=== PATIENT | female | born 1995 | race Two or more races ===

== ENCOUNTER 2025-01-24 20:11 | Emergency (ER) | payer MEDICAID, OTHER ==
[~2025-01-24] VITALS: Ht 152.4 cm; Wt 96.4 kg
--- NOTE | 2025-01-24 20:20 | ED.PDOC ---
Eye-HPI HPI Comments PATIENT C/O RIGHT LOWER MOLAR PAIN/SWELLING FOR 2 DAYS. PATIENT IS 10 WEEKS , DENTIST WILL NOT SEE HER WITHOUT CLEARANCE FROM OBGYN. Chief Complaint: Tooth Pain Time Seen by MD: 20:18 Reviewed Notes: Nurses Notes, Medications, Allergies Allergies: Coded Allergies: NO KNOWN ALLERGIES (Unverified , 01/24/25) Home Meds Active Scripts Amoxicillin Trihydrate (Amoxicillin) 500 Mg Cap, 1 CAP PO BID for 7 Days, #14 CAP Prov:JEAN-PIERRE SHAH WEDGER MACHINE 01/24/25 Information Source: Patient Past Medical History PAST MEDICAL HISTORY: Denies Surgical History: Denies all surgeries NETWORK ENGINEER History: No Pertinent NETWORK ENGINEER History Family History Family History: Reviewed,noncontributory to illness Social History Smoker: Non-Smoker Alcohol: Denies ETOH Use Drugs: Denies Drug Use Constitutional: denies: chills, diaphoresis, fatigue, fever, malaise, sweats, weakness, others EENTM: reports: others (dental pain); denies: blurred vision, double vision, ear bleeding, ear discharge, ear drainage, ear pain, ear ringing, eye pain, eye redness, hearing loss, mouth pain, mouth swelling, nasal discharge, nose bleeding, nose congestion, nose pain, photophobia, tearing, throat pain, throat swelling, voice changes Respiratory: denies: cough, hemoptysis, orthopnea, SOB at rest, shortness of breath, SOB with excertion, stridor, wheezing, others Cardiovascular: denies: chest pain, dizzy spells, diaphoresis, Dyspnea on exertion, edema, irregular heart beat, left arm pain, lightheadedness, palpitations, PND, syncope, others Gastrointestinal: denies: abdomen distended, abdominal pain, blood streaked bowels, constipated, diarrhea, dysphagia, difficulty swallowing, hematemesis, melena, nausea, poor appetite, poor fluid intake, rectal bleeding, rectal pain, vomiting, others Genitourinary: denies: abnormal vagina bleeding, burning, dyspareunia, dysuria, flank pain, frequency, hematuria, incontinence, pain, , vagina discharge, urgency, others Neurological: denies: dizziness, fainting, headache, left sided numbness, left sided weakness, numbness, paresthesia, pre-existing deficit, right sided numbness, right sided weakness, seizure, speech problems, tingling, tremors, weakness, others Musculoskeletal: denies: back pain, gout, joint pain, joint swelling, muscle pain, muscle stiffness, neck pain, others Integumetry: denies: bruises, change in color, change in hair/nails, dryness, laceration, lesions, lumps, rash, wounds, others Allergic/Immunocompromised: denies: Difficulty Healing, Frequent Infections, Hives, Itching, others Hematologic/Lymphatic: denies: anemia, blood clots, easy bleeding, easy bruising, swollen glands, others Endocrine: denies: excessive hunger, excessive sweating, excessive thirst, excessive urination, flushing, intolerance to cold, intolerance to heat, unexplained weight gain, unexplained weight loss, others Psychiatric: denies: anxiety, bipolar disorder, depression, hopeless, panic disorder, schizophrenia, sleepless, suicidal, others Physical Exam General Appearance: No Apparent Distress, Normal HEENT: Pharynx Normal, TMs Normal, Other (Tooth number 47 with moderate cavity and home no noted abscess or drainage) Neck: Full Range of Motion, Non-Tender Respiratory: Lungs Clear, No Respiratory Distress, Normal Breath Sounds Cardiovascular: No Edema, No JVD, No Murmur, No Gallop, Normal Peripheral Pulses, Regular Rate/Rhythm Breast Exam: Deferred Gastrointestinal: No Organomegaly, Non Tender, No Pulsatile Mass, Normal Bowel Sounds, Soft Genitalia: Deferred Pelvic: Deferred Rectal: Deferred Extremities: Normal capillary refill, Normal inspection, Normal range of motion, Non-tender, No pedal edema Musculoskeletal : Apperance: Normal Neurologic: Alert, No Motor Deficits, Normal Affect, Normal Mood, No Sensory Deficits Cerebellar Function: Normal Reflexes: NOT DONE Skin: Dry, Normal Color, Warm Lymphatic: No Adenopathy Was a procedure done? Was a procedure done?: No EENT DIFF Eye: N/A Sore Throat: Abhi's Angina X-Ray, Labs, Meds, VS Vital Signs Date Time Temp Pulse Resp B/P (MAP) Pulse Ox O2 Delivery O2 Flow Rate FiO2 01/24/25 20:13 98.1 82 18 109/83 100 98.1 X-Ray, Labs, Meds, VS Comment Patient given Rocephin 1 g IM and Hurricaine spray reports improvement in pain requesting discharge at this time. Trial of amoxicillin advised take medication as prescribed side effects discussed. He is to follow up with her OBGYN for teresa roberson for dental. ER return precautions given patient indicates understanding and agrees with discharge plan of care. Time of 1ST Reevaluation: 20:25 Reevaluation 1ST: Unchanged Time of 2ND Reevaluation: 20:59 Reevaluation 2ND: Improved Patient Education/Counseling: Diagnosis, Treatment, Prognosis, Need For Follow Up Family Education/Counseling: No Family Present SEPSIS Sepsis Screen Vital Signs Date Time Temp Pulse Resp B/P (MAP) Pulse Ox O2 Delivery O2 Flow Rate FiO2 01/24/25 20:13 98.1 82 18 109/83 100 98.1 Departure 1 Departure Time of Disposition: 20:40 Impression: Primary Impression: Infected dental caries Disposition: 01 HOME / SELF CARE / HOMELESS Condition: Stable e-Prescriptions Amoxicillin Trihydrate (Amoxicillin) 500 Mg Cap 1 CAP PO BID for 7 Days, #14 CAP Prov: JEAN-PIERRE SHAH 01/24/25 Discharged With: Self Critical Care Note Critical Care Time?: No Stability Stability form required: JEAN-PIERRE Delacruz Jan 24, 2025 20:19
[2025-01-24] MEDS ORDERED: AMOX500C2 PO (20:41)
[2025-01-24] MEDS ORDERED: BENZOCAINE (DENTAL) 20 % SPRAY 60ML MT ONE (20:45)
[2025-01-24] MEDS ORDERED: cefTRIAXone SOD 1,000 MG VL IM ONE ×2 (20:45)
[2025-01-24] MEDS: cefTRIAXone SOD 1,000 MG VL IM ONE (21:12)
[2025-01-24] MEDS: BENZOCAINE (DENTAL) 20 % SPRAY 60ML MT ONE (21:12)
[2025-01-24 21:20] VITALS: BP 112/81; PULSE 80; RESP 20; TEMP 98; O2SAT 100
== END 2025-01-24 21:23 | disposition home or self-care (01) ==
LOC: ER 20:11
DX: K02.9 Dental caries, unspecified (principal); Z79.899 Other long term (current) drug therapy
CPT/HCPCS: 96372; 99283; J0696

== ENCOUNTER 2025-04-07 07:59 | Observation (INO) | payer MEDICAID ==
--- NOTE | 2025-04-07 11:05 | DVHDS2 ---
Physician Discharge Progress N Final Diagnosis: IUP 19+ wk, Abd pain Secondary Diagnosis: Round lig pain Condition on Discharge: Stable Disposition: Home Discharge Instructions: Diet: Regular Activity: No Restrictions, As Tolerated Follow Up/Referral: To ER if pain, eval abd pain, not OB related Medications: NA Follow Up Care: Discharge Statement: "Patient was advised to return to the ER or call 911 if any headaches, dizziness, shortness of breath, chest pain, abdominal pain, bleeding, fevers, or worsening of medical condition. Patient was counseled about treatment plan, medications, possible side effects, patientverbalized understanding. All questions were answered to the best of my ability. This discharge took greater then 30 minutes in planning, reviewing documentation, counseling the patient, and discussing with other team members." Visit Coding OBGYN Date of Service: Apr 07, 2025 Billing Provider: LEVON SEARS DO [employer] Common Visit Codes: 02604-XMT/OBS SAME DATE (MOD) LEVON SEARS DO Apr 07, 2025 11:05
== END 2025-04-07 08:37 | disposition home or self-care (01) ==
LOC: LDRP 07:59
PROVIDERS: ADMIT Obstetrics & Gynecology; ATTEND Obstetrics & Gynecology
DX: O26.892 Other specified pregnancy related conditions, second trimester (principal); R10.9 Unspecified abdominal pain; Z3A.19 19 weeks gestation of pregnancy; Z98.890 Other specified postprocedural states
CPT/HCPCS: 81002; 94760; G0378